=== PATIENT | female | born 1980 | race Caucasian/White ===

== ENCOUNTER 2016-03-16 22:46 | Emergency (ER) | payer OTHER ==
[2016-03-17] MEDS ORDERED: DIAZEPAM 2 MG TABLET PO ONE (01:05)
[2016-03-17] MEDS ORDERED: KETOROLAC TROMETHAMINE 60 MG/2 ML SDV IM ONE (01:05)
[2016-03-17] MEDS ORDERED: PREDNISONE 20 MG TABLET PO ONE (01:05)
--- NOTE | 2016-03-17 01:11 | ER Document Report ---
ED Neck/Back Problem - General Chief Complaint: Low Back Pain Stated Complaint: BACK PAIN Time seen by provider: 01:06 Mode of Arrival: Ambulatory Information source: Patient TRAVEL OUTSIDE OF THE [place] IN LAST 30 DAYS: No - HPI Patient complains to provider of: Pain, Lower back Onset: This morning Where: Home Onset: Gradual Timing: Constant Quality of pain: Achy Severity: Moderate Pain Level: 4 Recent injury: No Associated symptoms: Numbness/tingling, Radiation to leg Exacerbated by: Cough/deep breaths, Movement of trunk Relieved by: Nothing Similar symptoms previously: Yes Recently seen / treated by doctor: No Notes: Patient is a 35-year-old female presenting to the emergency room complaining of low back pain with pain and tingling sensation running down bilateral lower extremities, she reports she's had low back pain with neuropathy 10 years, she typically feels as though she has a pulled muscle in the low back but is usually able to get around, over the last few days she states that she is unable to stand up straight due to her pain, it is painful to walk, it is painful to cough or make movements of any kind, she reports tingling sensation to both feet that have been going on for few years now, and does seem to be exacerbated over the last few days, she denies any recent injury, she reports that yesterday afternoon she was suffering from constipation, she took multiple laxatives and had multiple bowel movements throughout the day, states she had to push quite hard to get bowel movements out and this may be when she actually irritated her back, she denies any urinary incontinence or retention, has been unable to follow-up with a primary care provider recently, or a chiropractor which she used to see for the pain - Related Data Allergies/Adverse Reactions: oxycodone HCl [From Percocet] Allergy (Mild, Verified 01/15/15 23:58) Past Medical History - General Information source: Patient - Social History Smoking Status: Current Every Day Smoker Chew tobacco use (# tins/day): No Frequency of alcohol use: Rare Drug Abuse: None Family History: Reviewed & Not Pertinent Patient has suicidal ideation: No Patient has homicidal ideation: No Pulmonary Medical History: Reports: Hx Asthma Neurological Medical History: Reports: Hx Migraine. Denies: Hx Seizures Renal/ Medical History: Reports: Hx Ovarian Cysts. Denies: Hx Peritoneal Dialysis GI Medical History: Reports: Hx Diverticulitis Skin Medical History: Reports Hx Eczema Psychiatric Medical History: Reports: Hx Attention Deficit Hyperactivity Disorder - add, Hx Depression Past Surgical History: Reports: Hx Oral Surgery - wisdom teeth. Denies: Hx Hysterectomy - Immunizations Immunizations up to date: Yes Hx Diphtheria, Pertussis, Tetanus Vaccination: Yes Review of Systems - Review of Systems Constitutional: No symptoms reported EENT: No symptoms reported Cardiovascular: No symptoms reported Respiratory: No symptoms reported Gastrointestinal: No symptoms reported Genitourinary: No symptoms reported Female Genitourinary: No symptoms reported Musculoskeletal: Back pain Skin: No symptoms reported Hematologic/Lymphatic: No symptoms reported Neurological/Psychological: No symptoms reported -: Yes All other systems reviewed and negative Physical Exam - Vital signs Vitals: Temp Pulse Resp BP Pulse Ox 97.9 F 107 H 18 151/89 H 98 03/16/16 22:50 03/16/16 22:50 03/16/16 22:50 03/16/16 22:50 03/16/16 22:50 Interpretation: Tachycardic - General General appearance: Appears well, Alert - HEENT Head: Normocephalic, Atraumatic Eyes: Normal Pupils: PERRL - Respiratory Respiratory status: No respiratory distress Chest status: Nontender Breath sounds: Normal Chest palpation: Normal - Cardiovascular Rhythm: Regular Heart sounds: Normal auscultation Murmur: No - Abdominal Inspection: Normal Distension: No distension Bowel sounds: Normal Tenderness: Nontender Organomegaly: No organomegaly - Back Back: Normal, Tender - Tender to palpate in lumbar paraspinal musculature bilaterally, no midline tenderness, distal sensation and motor is intact with 2 + DP pulses bilaterally, patient does have pain with straight leg raise bilaterally - Extremities General upper extremity: Normal inspection, Nontender, Normal color, Normal ROM , Normal temperature General lower extremity: Normal inspection, Nontender, Normal color, Normal ROM , Normal temperature, Normal weight bearing. No: Briseida's sign - Neurological Neuro grossly intact: Yes Cognition: Normal Orientation: AAOx4 Stark Coma Scale Eye Opening: Spontaneous Leonora Coma Scale Verbal: Oriented Stark Coma Scale Motor: Obeys Commands Stark Coma Scale Total: 15 Speech: Normal Motor strength normal: LUE, RUE, LLE, RLE Sensory: Normal - Psychological Associated symptoms: Normal affect, Normal mood - Skin Skin Temperature: Warm Skin Moisture: Dry Skin Color: Normal Course - Re-evaluation Re-evalutation: 03/17/16 01:09 Patient symptoms consistent with lumbar radiculopathy and neuropathy, she was provided with Toradol, Valium and steroids, as well as information for follow-up , advised to return if symptoms worsen, patient acknowledges understanding and agreement with this plan - Vital Signs Vital signs: Temp Pulse Resp BP Pulse Ox 97.9 F 83 18 122/78 97 03/17/16 00:43 03/17/16 00:43 03/17/16 00:43 03/17/16 00:43 03/17/16 00:43 Discharge - Discharge Clinical Impression: Neuropathy Low back pain Qualifiers: Chronicity: acute Back pain laterality: bilateral Sciatica presence: with sciatica Sciatica laterality: bilateral sciatica Qualified Code(s): M54.42 - Lumbago with sciatica, left side; M54.41 - Lumbago with sciatica, right side Condition: Stable Disposition: HOME, SELF-CARE Instructions: Ice Packs ([facility]), Low Back Pain ([facility]), Muscle Strain ([facility]), Oral Narcotic Medication ([facility]), Pain Medication Injection ([facility]), Warm Packs ([facility]), Stretching Exercises for the Back ([facility]), Family Physicians / Practices, Pain Management Additional Instructions: Follow up with your primary care provider in one to 2 days. Return to the emergency room immediately if symptoms worsen or any additional concerns. Refrain from heavy lifting or strenuous exercise until symptoms are completely resolved. Prescriptions: Diazepam [Valium 5 mg Tablet] 5 mg PO QIDP PRN #15 tablet PRN Reason: Methylprednisolone [Medrol Dosepack (4 mg/Tab) 21 Tab/Dosepak] 4 mg PO ASDIR PRN #21 tab.ds.pk PRN Reason: Tramadol HCl/Acetaminophen [Ultracet 37.5 mg/325 mg Tablet] 1 each PO Q6 #20 tablet Forms: Return to Work
[2016-03-17 03:19] VITALS: BP 127/72
== END 2016-03-17 01:33 | disposition home or self-care (01) ==
LOC: ER 22:46
DX: G62.9 Polyneuropathy, unspecified (principal); M54.42 Lumbago with sciatica, left side; M54.41 Lumbago with sciatica, right side; F17.200 Nicotine dependence, unspecified, uncomplicated
CPT/HCPCS: 99283; 96372; J3490; J1885; J7512

== ENCOUNTER 2017-12-02 16:28 | Emergency (ER) | payer OTHER ==
[2017-12-02] MEDS ORDERED: PROMETHAZINE HCL INJ 25 MG/1 ML VIAL IM ONE (17:22)
--- NOTE | 2017-12-02 17:27 | ER Document Report ---
HPI - HPI Pain Level: 2 Notes: Patient is a 37-year-old female with a history of GI disorders who presents to the ED complaining of decreased p.o. intake, nausea, vomiting, intermittent headaches, occasional dizziness over the last 3-4 days. Patient states that she has also had intermittent fever, but nothing today. Patient does not recall any travel or new foods/drinks. Patient states that her last episode of emesis was sometime this morning and she has been able to tolerate water today. Patient states that she feels dehydrated. Her dizziness is primarily there when she stands up. Patient states that she is not urinating as often as she normally would be. She has not had any recent vaginal discharge, odor, or bleeding. Her last menstrual period was 2 months ago as she has PCOS which is not uncommon for her. Denies any head injury, neck pain, changes in vision/ speech/mentation/hearing, URI, sore throat, chest pain, palpitations, syncope, cough, shortness of breath, wheeze, dyspnea, abdominal pain, diarrhea, urinary retention, dysuria, hematuria, back pain, loss of control of bowel or bladder, numbness/tingling, or rash. - ROS Systems Reviewed and Negative: Yes All other systems reviewed and negative - REPRODUCTIVE Reproductive: DENIES: : Past Medical History - Social History Smoking Status: Unknown if Ever Smoked Family History: Reviewed & Not Pertinent Pulmonary Medical History: Reports: Hx Asthma Neurological Medical History: Reports: Hx Migraine. Denies: Hx Seizures Renal/ Medical History: Reports: Hx Ovarian Cysts. Denies: Hx Peritoneal Dialysis GI Medical History: Reports: Hx Diverticulitis Skin Medical History: Reports Hx Eczema Psychiatric Medical History: Reports: Hx Attention Deficit Hyperactivity Disorder - add, Hx Depression Past Surgical History: Reports: Hx Oral Surgery - wisdom teeth. Denies: Hx Hysterectomy - Immunizations Immunizations up to date: Yes Hx Diphtheria, Pertussis, Tetanus Vaccination: Yes Vertical Provider Document - CONSTITUTIONAL Agree With Documented VS: No - HR 92 Notes: PHYSICAL EXAMINATION: GENERAL: Well-appearing, well-nourished and in no acute distress. HEAD: Atraumatic, normocephalic. EYES: Pupils equal round and reactive to light, extraocular movements intact, sclera anicteric, conjunctiva are normal. ENT: EAC clear b/l. TM's intact b/l without erythema, fluid, or perforation. Nares patent and without discharge. oropharynx clear without exudates. No tonsilar hypertrophy or erythema. Moist mucous membranes. No sinus tenderness. NECK: Normal range of motion, supple without lymphadenopathy. No rigidity/ meningismus. LUNGS: Breath sounds clear to auscultation bilaterally and equal. No wheezes rales or rhonchi. HEART: Regular rate and rhythm without murmurs, rubs, gallops. ABDOMEN: Soft, nontender, nondistended abdomen. No guarding, no rebound. No masses appreciated. Normal bowel sounds present. No CVA tenderness bilaterally. Musculoskeletal: FROM to passive/active. Strength 5+/5. Extremities: No cyanosis, clubbing, or edema b/l. Peripheral pulses 2+. Capillary refill less than 3 seconds. NEUROLOGICAL: Cranial nerves grossly intact. Normal speech, normal gait. PSYCH: Normal mood, normal affect. SKIN: Warm, Dry, normal turgor, no rashes or lesions noted. - INFECTION CONTROL TRAVEL OUTSIDE OF THE [place] IN LAST 30 DAYS: No Course - Re-evaluation Re-evalutation: 12/02/17 17:35 Initial orthostatics + with increase in HR. Labs pending with fluids ordered. 12/02/17 18:47 K+ low at 3.0. KCl ordered. 12/02/17 20:55 Patient is an afebrile, well-hydrated, 37-year-old female who presents to the ED with nausea and vomiting with mild dehydration. Vitals are acceptable without any significant tachycardia, tachypnea, or hypoxia. PE is otherwise unremarkable. Patient is nontoxic-appearing and is tolerating p.o. without any difficulties. Patient has not had any vomiting since this morning. Patient was given Phenergan IM as well as 3 L of fluid. CBC, CMP, hCG, urinalysis were otherwise unremarkable aside from the hypokalemia. Patient's abdomen is soft and nontender. No further labs or imaging warranted at this time. Patient states that she is feeling much better and would like to go home. Her second set of orthostatics were acceptable and improved from initial. Low suspicion/ risk for acute appendicitis, bowel obstruction, acute cholecystitis, acute cholangitis, perforated diverticulitis, incarcerated hernia, pancreatitis, perforated ulcer, peritonitis, sepsis, pelvic inflammatory disease, ectopic , tubo-ovarian abscess, ovarian torsion, or other systemic emergent condition at this time. Patient is aware that her condition can change from initial presentation and she needs to monitor symptoms closely and seek medical attention if any acute changes. I will send her home with a prescription for Zofran. Conservative measures otherwise for symptoms. Recheck with your PCM in 2-3 days. Consider consult with a labor training manager. Return to the ED with any worsening/concerning symptoms otherwise as reviewed in discharge. Patient is in agreement. Work note provided. - Vital Signs Vital signs: Temp Pulse Resp BP Pulse Ox 97.8 F 121 H 20 112/75 97 12/02/17 16:41 12/02/17 16:41 12/02/17 16:41 12/02/17 16:41 12/02/17 16:41 - Laboratory Result Diagrams: 12/02/17 17:50 12/02/17 17:50 Discharge - Discharge Clinical Impression: Nausea and vomiting Qualifiers: Vomiting type: unspecified Vomiting Intractability: non-intractable Qualified Code(s): R11.2 - Nausea with vomiting, unspecified Condition: Stable Disposition: HOME, SELF-CARE Instructions: Antinausea Medication ([facility]), Vomiting ([facility]) Additional Instructions: Maintain adequate fluid and food intake [place] diet ([employer] Bananas, rice, apples, toast, etc Zofran as needed tylenol if needed Monitor for any worsening symptoms Make sure you are staying hydrated enough to urinate and have normal BM's Recheck with your PCM in 2-3 days Consider consult with Gastroenterology for ongoing/worsening symptoms Return to the ED with any worsening symptoms and/or development of fever, headache, chest pain, palpitations, syncope, shortness of breath, trouble breathing, abdominal pain, n/v/d, blood in stool/urine, weakness, or other worsening symptoms that are concerning to you. Forms: Return to Work Referrals: TIN WRIGHT MD [ACTIVE STAFF] - Follow up as needed
[2017-12-02] MEDS: NORMAL SALINE 1000 ML 1,000 ML IV PRN ×2 (18:04→19:17)
[2017-12-02 18:14] LABS: ABSOLUTE EOSINOPHILS # (AUTO) 0.3 10^3/uL (0.0-0.6); ABSOLUTE LYMPHOCYTES (AUTO) 3.9 10^3/uL (0.5-4.7); ABSOLUTE NEUT (AUTO) 8.2 10^3/uL (1.7-8.2); BASOPHILS % (AUTO) 0.3 % (0-2); EOSINOPHILS % (AUTO) 2.3 % (0-6); HEMATOCRIT 41.8 % (36.0-47.0); HEMOGLOBIN 14.8 g/dL (12.0-15.5); MEAN CORPUSCULAR HEMOGLOBIN 31.2 pg (27.0-33.4); MEAN CORPUSCULAR HGB CONC 35.4 g/dL (32.0-36.0); MEAN CORPUSCULAR VOLUME 88 fl (80-97); MONOCYTES % (AUTO) 7.3 % (3-13); PLATELET COUNT 413 10^3/uL (150-450); RED BLOOD COUNT 4.74 10^6/uL (3.72-5.28); RED CELL DISTRIBUTION WIDTH 13.3 % (11.5-14.0); SEGMENTED NEUTROPHILS % (AUTO) 61.1 % (42-78); TOTAL CELLS COUNTED % (AUTO) 100 %; WHITE BLOOD COUNT 13.5 10^3/uL (4.0-10.5)
[2017-12-02 18:31] LABS: APPEARANCE,URINE CLEAR; BILIRUBIN,URINE NEGATIVE (NEGATIVE); COLOR,URINE YELLOW; GLUCOSE, URINE NEGATIVE (NEGATIVE); KETONES,URINE NEGATIVE (NEGATIVE); LEUKOCYTE ESTERASE,URINE NEGATIVE (NEGATIVE); NITRITE,URINE NEGATIVE (NEGATIVE); PROTEIN,URINE NEGATIVE (NEGATIVE); URINE SPECIFIC GRAVITY 1.009; UROBILINOGEN,URINE NEGATIVE mg/dL (<2.0)
[2017-12-02 18:36] LABS: ALANINE AMINOTRANSFERASE 47 U/L (9-52); ALBUMIN 4.7 g/dL (3.5-5.0); ALKALINE PHOSPHATASE 61 U/L (38-126); ANION GAP 15 (5-19); ASPARTATE AMINO TRANSFERASE 34 U/L (14-36); BILIRUBIN,DIRECT 0.3 mg/dL (0.0-0.4); BILIRUBIN,TOTAL 0.4 mg/dL (0.2-1.3); BLOOD UREA NITROGEN 8 mg/dL (7-20); CALCIUM 10.2 mg/dL (8.4-10.2); CARBON DIOXIDE 28 mmol/L (22-30); CHLORIDE 97 mmol/L (98-107); GLUCOSE 83 mg/dL (75-110); LIPASE 120.1 U/L (23-300); SODIUM 139.7 mmol/L (137-145); TOTAL PROTEIN 8.3 g/dL (6.3-8.2)
[2017-12-02] MEDS ORDERED: POTASSIUM CHLORIDE 10 MEQ CAPSULE.ER PO ONE (18:47)
[2017-12-02] MEDS ORDERED: RINGERS SOLUTION,LACTATED 1,000 ML IV ONE (19:27)
[2017-12-02 20:50] VITALS: BP 119/69
== END 2017-12-02 21:06 | disposition home or self-care (01) ==
LOC: ER 16:28
DX: R11.2 Nausea with vomiting, unspecified (principal); E86.0 Dehydration; R51 Headache; R42 Dizziness and giddiness; R50.9 Fever, unspecified; E28.2 Polycystic ovarian syndrome; N92.6 Irregular menstruation, unspecified; Z87.19 Personal history of other diseases of the digestive system
CPT/HCPCS: 99284; 96360; 96361; 36415; 83690; 84703; 85025; 80053; 81001; J2550; J7030; J7120